=== PATIENT | male | born 1955 | race Caucasian/White ===

== ENCOUNTER 2016-09-07 09:00 | Outpatient (RCR) | payer BC ==
[2016-06-29 09:22] LABS: ADD PATHOLOGY DIFF REVIEW NO
[2016-06-29 09:28] LABS: MEAN CELL VOLUME 67 fl (80.0-100.0); MEAN CORPUSCULAR HGB CONC 32 g/dl (33.0-37.0); PLATELET COUNT 107 K/mm3 (130-400); RED BLOOD COUNT 5.34 M/mm3 (4.20-5.60); REDCELL DISTRIBUTION WIDTH-CV 16.1 % (11.5-14.5); WHITE BLOOD COUNT 3.6 K/mm3 (4.8-10.8)
[2016-06-29 09:33] LABS: HEMOGLOBIN 11.5 g/dl (13.5-18.0); MEAN CORPUSCULAR HEMOGLOBIN 22 pg (27.0-31.0)
[2016-06-29 09:50] LABS: BAND 6 % (0-10); EOSINOPHIL 1 % (0-4); HYPOCHROMIA 1+; MICROCYTOSIS 2+; NEUTROPHILS 52 % (42.0-75.2); PLATELET ESTIMATE DECREASED (NORMAL); TARGET CELLS 1+; TOTAL CELLS COUNTED 100
[2016-06-29 09:54] LABS: HEMATOCRIT 35.9 % (42.0-52.0)
[2016-06-29 10:33] VITALS: BP 133/65; PULSE 58; TEMP 97.8
[2016-08-03 09:25] LABS: ADD PATHOLOGY DIFF REVIEW NO
[2016-08-03 09:37] LABS: MEAN CELL VOLUME 66 fl (80.0-100.0); MEAN CORPUSCULAR HGB CONC 32 g/dl (33.0-37.0); PLATELET COUNT 129 K/mm3 (130-400); RED BLOOD COUNT 5.46 M/mm3 (4.20-5.60); REDCELL DISTRIBUTION WIDTH-CV 16.2 % (11.5-14.5); WHITE BLOOD COUNT 3.9 K/mm3 (4.8-10.8)
[2016-08-03 09:55] LABS: HEMOGLOBIN 11.5 g/dl (13.5-18.0); MEAN CORPUSCULAR HEMOGLOBIN 21 pg (27.0-31.0)
[2016-08-03 10:05] LABS: HEMATOCRIT 35.8 % (42.0-52.0)
[2016-08-03 10:29] VITALS: BP 142/72; PULSE 66; TEMP 98.1
[2016-08-03 10:34] LABS: BAND 2 % (0-10); EOSINOPHIL 2 % (0-4); NEUTROPHILS 44 % (42.0-75.2); PLATELET ESTIMATE DECREASED (NORMAL); TOTAL CELLS COUNTED 100
[2016-09-07 11:28] VITALS: BP 109/87; PULSE 58; TEMP 98.1
== END 2016-09-27 | disposition home or self-care (01) ==
LOC: EUO
PROVIDERS: Internal Medicine
DX: D69.49 Other primary thrombocytopenia (principal)
CPT/HCPCS: J7040

== ENCOUNTER → 2016-09-07 | Outpatient (CLI) | payer BC ==
[~2016-09-07] MED LIST: AMBIEN 5MG TABLE5 MG PO; AMOXICILLIN 8751 TAB PO; CLEOCIN HCL300 MG PO; IBU800 M1 PO; LEVAQUIN 5500 MG/TA1 PO; NORCO 325 MG-51 TAB PO; OMNICEF 300MG300 MG PO; ZOCOR 10MG10 MG PO; ZOCOR 20MG20 MG PO; ZOLOFT 25MG25 MG PO; ZOLOFT 50MG50 MG PO
[2016-09-07 09:39] LABS: HEMATOCRIT 34.1 % (42.0-52.0)
[2016-09-07 09:48] LABS: ADD PATHOLOGY DIFF REVIEW NO
[2016-09-07 09:49] LABS: LACTATE DEHYDROGENASE 431 U/L (313-618)
[2016-09-07 10:00] LABS: MEAN CELL VOLUME 66 fl (80.0-100.0); MEAN CORPUSCULAR HGB CONC 33 g/dl (33.0-37.0); PLATELET COUNT 91 K/mm3 (130-400); RED BLOOD COUNT 5.19 M/mm3 (4.20-5.60); REDCELL DISTRIBUTION WIDTH-CV 16.2 % (11.5-14.5); WHITE BLOOD COUNT 2.8 K/mm3 (4.8-10.8)
[2016-09-07 10:31] LABS: BAND 4 % (0-10); BASOPHIL 2 % (0-2); EOSINOPHIL 4 % (0-4); NEUTROPHILS 46 % (42.0-75.2); TOTAL CELLS COUNTED 100
[2016-09-07 10:32] LABS: MEAN CORPUSCULAR HEMOGLOBIN 21 pg (27.0-31.0)
[2016-09-07 10:34] LABS: HYPOCHROMIA 1+; PLATELET ESTIMATE DECREASED (NORMAL); TEAR DROP CELLS 1+
[2016-09-07 10:49] LABS: TOTAL IRON BINDING CAPACITY 283 ug/dL (261-462)
[2016-09-07 11:15] LABS: FERRITIN 197 ng/mL (18-464)
== END ==
LOC: COL.LAB 09:02
PROVIDERS: Internal Medicine
DX: Z01.89 Encounter for other specified special examinations (principal)

== ENCOUNTER → 2016-10-05 | Outpatient (CLI) | payer BC ==
[2016-10-05 09:48] LABS: ADD PATHOLOGY DIFF REVIEW NO
[2016-10-05 09:53] LABS: MEAN CELL VOLUME 66 fl (80.0-100.0); MEAN CORPUSCULAR HGB CONC 32 g/dl (33.0-37.0); PLATELET COUNT 102 K/mm3 (130-400); RED BLOOD COUNT 5.57 M/mm3 (4.20-5.60); REDCELL DISTRIBUTION WIDTH-CV 17.2 % (11.5-14.5); WHITE BLOOD COUNT 3.9 K/mm3 (4.8-10.8)
[2016-10-05 09:55] LABS: HEMOGLOBIN 11.7 g/dl (13.5-18.0); MEAN CORPUSCULAR HEMOGLOBIN 21 pg (27.0-31.0)
[2016-10-05 10:30] LABS: BAND 4 % (0-10); BASOPHIL 2 % (0-2); EOSINOPHIL 1 % (0-4); HYPOCHROMIA 1+; MICROCYTOSIS 1+; NEUTROPHILS 35 % (42.0-75.2); PLATELET ESTIMATE DECREASED (NORMAL); TOTAL CELLS COUNTED 100
[2016-10-05 10:35] LABS: HEMATOCRIT 36.7 % (42.0-52.0)
== END ==
LOC: COL.LAB 09:06
PROVIDERS: Internal Medicine
DX: Z01.89 Encounter for other specified special examinations (principal)

== ENCOUNTER → 2016-10-26 | Outpatient (CLI) | payer BC ==
[2016-10-26 13:09] LABS: ADD PATHOLOGY DIFF REVIEW NO
[2016-10-26 13:26] LABS: MEAN CELL VOLUME 67 fl (80.0-100.0); MEAN CORPUSCULAR HGB CONC 32 g/dl (33.0-37.0); PLATELET COUNT 102 K/mm3 (130-400); RED BLOOD COUNT 5.43 M/mm3 (4.20-5.60); REDCELL DISTRIBUTION WIDTH-CV 17.5 % (11.5-14.5); WHITE BLOOD COUNT 3.8 K/mm3 (4.8-10.8)
[2016-10-26 13:48] LABS: HEMOGLOBIN 11.5 g/dl (13.5-18.0); MEAN CORPUSCULAR HEMOGLOBIN 21 pg (27.0-31.0)
[2016-10-26 13:49] LABS: HEMATOCRIT 36.2 % (42.0-52.0)
[2016-10-26 13:55] LABS: BAND 5 % (0-10); EOSINOPHIL 1 % (0-4); NEUTROPHILS 52 % (42.0-75.2); TOTAL CELLS COUNTED 100
[2016-10-26 13:56] LABS: ANISOCYTOSIS 1+; MICROCYTOSIS 1+; PLATELET ESTIMATE NORMAL (NORMAL); TARGET CELLS 1+
== END ==
LOC: EUO 09:00
PROVIDERS: Family Medicine
DX: D69.6 Thrombocytopenia, unspecified (principal)

== ENCOUNTER → 2016-11-30 | Outpatient (CLI) | payer BC ==
[2016-11-30 14:34] LABS: ADD PATHOLOGY DIFF REVIEW NO
[2016-11-30 14:54] LABS: MEAN CELL VOLUME 67 fl (80.0-100.0); MEAN CORPUSCULAR HGB CONC 32 g/dl (33.0-37.0); PLATELET COUNT 86 K/mm3 (130-400); RED BLOOD COUNT 5.33 M/mm3 (4.20-5.60); WHITE BLOOD COUNT 3.7 K/mm3 (4.8-10.8)
[2016-11-30 14:57] LABS: HEMOGLOBIN 11.5 g/dl (13.5-18.0); MEAN CORPUSCULAR HEMOGLOBIN 22 pg (27.0-31.0)
[2016-11-30 15:41] LABS: ANISOCYTOSIS 2+; BAND 4 % (0-10); HYPOCHROMIA 2+; MICROCYTOSIS 2+; NEUTROPHILS 54 % (42.0-75.2); TOTAL CELLS COUNTED 100
[2016-11-30 15:42] LABS: OVALOCYTES 1+; PLATELET ESTIMATE DECREASED (NORMAL)
[2016-11-30 17:06] LABS: HEMATOCRIT 35.6 % (42.0-52.0)
== END ==
LOC: EUO 09:00
PROVIDERS: Family Medicine
DX: D69.6 Thrombocytopenia, unspecified (principal)

== ENCOUNTER 2016-12-25 09:06 | Outpatient (CLI) | payer BC ==
[2016-12-25 12:28] VITALS: BP 121/69; PULSE 56; TEMP 97.8
== END 2016-12-25 12:29 ==
LOC: COL.LAB 09:06
DX: Z01.89 Encounter for other specified special examinations (principal)
CPT/HCPCS: J7040

== ENCOUNTER 2016-12-25 10:30 | Outpatient (RCR) | payer BC ==
[2016-10-05 11:15] VITALS: BP 120/76; PULSE 66; TEMP 97.9
[2016-10-26 14:17] VITALS: BP 130/68; PULSE 70; TEMP 98.7
[2016-11-30 15:38] VITALS: BP 128/84; PULSE 60; TEMP 98.4
[~2016-12-25] VITALS: Ht 170.2 cm; Wt 83.0 kg
== END 2017-01-08 | disposition home or self-care (01) ==
LOC: EUO
DX: D69.6 Thrombocytopenia, unspecified (principal)
CPT/HCPCS: J7040

== ENCOUNTER → 2016-12-25 | Outpatient (CLI) | payer BC ==
[2016-12-25 09:46] LABS: ADD PATHOLOGY DIFF REVIEW NO
[2016-12-25 09:57] LABS: MEAN CELL VOLUME 66 fl (80.0-100.0); MEAN CORPUSCULAR HGB CONC 32 g/dl (33.0-37.0); PLATELET COUNT 88 K/mm3 (130-400); RED BLOOD COUNT 5.41 M/mm3 (4.20-5.60); REDCELL DISTRIBUTION WIDTH-CV 17.1 % (11.5-14.5); WHITE BLOOD COUNT 3.2 K/mm3 (4.8-10.8)
[2016-12-25 10:55] LABS: HEMOGLOBIN 11.4 g/dl (13.5-18.0); MEAN CORPUSCULAR HEMOGLOBIN 21 pg (27.0-31.0)
[2016-12-25 10:57] LABS: HEMATOCRIT 35.5 % (42.0-52.0)
[2016-12-25 12:01] LABS: BAND 5 % (0-10); EOSINOPHIL 2 % (0-4); NEUTROPHILS 45 % (42.0-75.2); TOTAL CELLS COUNTED 100
[2016-12-25 12:02] LABS: ANISOCYTOSIS 3+; HYPOCHROMIA 1+; MICROCYTOSIS 1+; PLATELET ESTIMATE DECREASED (NORMAL); TEAR DROP CELLS 1+
== END ==
LOC: COL.LAB 12:26 → EUO 12-28 09:00
PROVIDERS: Family Medicine
DX: D69.6 Thrombocytopenia, unspecified (principal)

== ENCOUNTER 2017-04-18 10:00 | Outpatient (RCR) | payer BC ==
[2017-02-20 09:40] LABS: MEAN CELL VOLUME 65 fl (80.0-100.0); MEAN CORPUSCULAR HGB CONC 32 g/dl (33.0-37.0); PLATELET COUNT 89 K/mm3 (130-400); RED BLOOD COUNT 5.11 M/mm3 (4.20-5.60); WHITE BLOOD COUNT 2.9 K/mm3 (4.8-10.8)
[2017-02-20 09:47] LABS: ADD PATHOLOGY DIFF REVIEW NO; HEMOGLOBIN 10.7 g/dl (13.5-18.0); MEAN CORPUSCULAR HEMOGLOBIN 21 pg (27.0-31.0)
[2017-02-20 10:01] LABS: ADJUSTED CALCIUM 9.1 mg/dL (8.4-10.2); ALBUMIN 4.2 gm/dL (3.5-5.0); BILIRUBIN,TOTAL 2.2 mg/dL (0.0-1.0); CALCIUM 9.3 mg/dL (8.4-10.2); CREATININE, serum 0.65 mg/dL (0.66-1.25); POTASSIUM 3.9 mmol/L (3.4-5.0); TOTAL PROTEIN 6.8 gm/dL (6.4-8.2)
[2017-02-20 10:17] LABS: COLLECTION METHOD CLEAN CATCH
[2017-02-20 10:22] LABS: BAND 3 % (0-10); EOSINOPHIL 2 % (0-4); HYPOCHROMIA 1+; LYMPHOCYTE 49 % (20.0-51.0); NEUTROPHILS 44 % (42.0-75.2); TEAR DROP CELLS 1+; TOTAL CELLS COUNTED 100
[2017-02-20 10:23] LABS: PLATELET ESTIMATE DECREASED (NORMAL)
[2017-02-20 10:35] VITALS: BP 129/70; PULSE 56; TEMP 97.8
[2017-02-20 10:49] LABS: PH 5 (5-8); SQUAMOUS EPITHELIAL None Seen /hpf; URINE APPEARANCE Clear; URINE BACTERIA None Seen /hpf; URINE BILIRUBIN Negative (NEGATIVE); URINE BLOOD Negative (NEGATIVE); URINE COLOR Yellow; URINE GLUCOSE Negative (NEGATIVE); URINE KETONE Negative (NEGATIVE); URINE LEUKOCYTE ESTERASE Negative (NEGATIVE); URINE PROTEIN(semi-quant) Negative (NEGATIVE); URINE RBC 0-2 /hpf; URINE UROBILINOGEN Negative (NEGATIVE); URINE WBC None Seen /hpf
[2017-02-20 12:10] LABS: PSA-TOTAL 0.3 ng/mL (0-4)
[2017-02-20 12:55] LABS: CHOLESTEROL RISK RATIO 2.5
[~2017-04-18] VITALS: Ht 170.2 cm; Wt 82.7 kg
[2017-04-18 09:35] LABS: ADD PATHOLOGY DIFF REVIEW NO
[2017-04-18 09:46] LABS: MEAN CELL VOLUME 67 fl (80.0-100.0); MEAN CORPUSCULAR HGB CONC 32 g/dl (33.0-37.0); PLATELET COUNT 105 K/mm3 (130-400); RED BLOOD COUNT 5.64 M/mm3 (4.20-5.60); WHITE BLOOD COUNT 4.1 K/mm3 (4.8-10.8)
[2017-04-18 09:48] LABS: HEMOGLOBIN 11.9 g/dl (13.5-18.0); MEAN CORPUSCULAR HEMOGLOBIN 21 pg (27.0-31.0)
[2017-04-18 09:50] LABS: HEMATOCRIT 37.5 % (42.0-52.0)
[2017-04-18 10:37] VITALS: BP 127/71; PULSE 58; TEMP 97.8
[2017-04-18 11:19] LABS: ANISOCYTOSIS 2+; BAND 14 % (0-10); HYPOCHROMIA 1+; LYMPHOCYTE 38 % (20.0-51.0); NEUTROPHILS 48 % (42.0-75.2); OVALOCYTES 1+; TOTAL CELLS COUNTED 100
== END 2017-05-21 ==
LOC: EUO
PROVIDERS: Internal Medicine
DX: Z00.00 Encounter for general adult medical examination without abnormal findings (principal); D69.6 Thrombocytopenia, unspecified; E11.9 Type 2 diabetes mellitus without complications; E78.5 Hyperlipidemia, unspecified
CPT/HCPCS: G0103; J7040

== ENCOUNTER 2017-07-25 09:00 | Outpatient (RCR) | payer BC ==
[2017-07-25 09:30] LABS: HEMOGLOBIN 12.2 g/dl (13.5-18.0)
[2017-07-25 09:32] LABS: HEMATOCRIT 37.3 % (42.0-52.0)
[2017-07-25 11:15] VITALS: BP 121/65; PULSE 66; TEMP 98.8
== END 2017-07-25 12:02 | disposition home or self-care (01) ==
LOC: EUO 09:00
PROVIDERS: Internal Medicine
DX: D69.6 Thrombocytopenia, unspecified (principal)
CPT/HCPCS: J7040

== ENCOUNTER 2017-11-14 10:05 | Outpatient (RCR) | payer BC ==
[~2017-11-14] VITALS: Ht 170.2 cm; Wt 86.0 kg
[2017-11-14 10:34] LABS: HEMOGLOBIN 10.8 g/dl (13.5-18.0)
[2017-11-14 11:11] LABS: MEAN CELL VOLUME 66 fl (80.0-100.0); MEAN CORPUSCULAR HEMOGLOBIN 22 pg (27.0-31.0); MEAN CORPUSCULAR HGB CONC 32 g/dl (33.0-37.0); PLATELET COUNT 90 K/mm3 (130-400); RED BLOOD COUNT 5.03 M/mm3 (4.20-5.60); REDCELL DISTRIBUTION WIDTH-CV 16.2 % (11.5-14.5)
[2017-11-14 11:33] LABS: BAND 3 % (0-10); EOSINOPHIL 1 % (0-4); LYMPHOCYTE 38 % (20.0-51.0); NEUTROPHILS 57 % (42.0-75.2)
[2017-11-14 11:35] LABS: POLYCHROMASIA 2+
[2017-11-14 11:36] LABS: ANISOCYTOSIS 1+; TEAR DROP CELLS 1+
[2017-11-14 11:37] LABS: MICROCYTOSIS 1+
[2017-11-14 11:38] LABS: PLATELET ESTIMATE DECREASED (NORMAL)
[2017-11-14 12:00] VITALS: BP 123/62; PULSE 59; TEMP 98
[2017-11-14 13:43] LABS: ALBUMIN 3.9 gm/dL (3.5-5.0); BILIRUBIN,TOTAL 1.3 mg/dL (0.0-1.0); CALCIUM 8.7 mg/dL (8.4-10.2); CREATININE, serum 0.59 mg/dL (0.66-1.25); POTASSIUM 3.8 mmol/L (3.4-5.0); TOTAL PROTEIN 7.2 gm/dL (6.4-8.2)
== END 2017-11-14 14:03 | disposition home or self-care (01) ==
LOC: EUO 10:05
PROVIDERS: Internal Medicine
DX: D69.6 Thrombocytopenia, unspecified (principal)
CPT/HCPCS: J7040

== ENCOUNTER 2018-07-05 14:33 | Emergency (ER) | payer BC, MEDICARE ==
[~2018-07-05] VITALS: Ht 167.6 cm; Wt 86.4 kg
[2018-07-05 14:37] VITALS: TEMP 98.6
[2018-07-05 15:39] LABS: EOS # 0.1 (0.0-0.7); EOS % 1.4 % (0-4.0); GRAN # 2.4 (1.4-6.5); GRAN % 56.2 % (42.2-75.2); LYMPH # 1.4 (1.2-3.4); LYMPH % 33.7 % (20.0-51.0); MEAN CELL VOLUME 69 fl (80.0-100.0); MEAN CORPUSCULAR HEMOGLOBIN 22 pg (27.0-31.0); MEAN CORPUSCULAR HGB CONC 32 g/dl (33.0-37.0); MEAN PLATELET VOLUME 10.5 fl (7.4-10.4); MONO # 0.3 (0.1-0.6); MONO % 6.7 % (1.7-9.3); PLATELET COUNT 133 K/mm3 (130-400); RED BLOOD COUNT 4.97 M/mm3 (4.20-5.60); REDCELL DISTRIBUTION WIDTH-CV 16.4 % (11.5-14.5)
[2018-07-05 15:45] LABS: HEMATOCRIT 34.1 % (42.0-52.0)
[2018-07-05 15:46] LABS: INR 1.1 (0.8-3.0)
[2018-07-05 15:48] LABS: ALANINE AMINOTRANSFERASE 52 U/L (21-72); ALBUMIN 4.3 gm/dL (3.5-5.0); ALKALINE PHOSPHATASE 71 U/L (50-136); ANION GAP 7 mmol/L (7-16); AST,SGOT 43 U/L (15-37); BILIRUBIN,TOTAL 2.2 mg/dL (0.0-1.0); BLOOD UREA NITROGEN 21 mg/dL (9-20); CALCIUM 9.2 mg/dL (8.4-10.2); CARBON DIOXIDE 28 mmol/L (22-30); CHLORIDE 109 mmol/L (98-107); CREATININE, serum 0.71 mg/dL (0.66-1.25); GLUCOSE 105 mg/dL (74-106); POTASSIUM 3.8 mmol/L (3.4-5.0); SODIUM 143 mmol/L (137-145); TOTAL PROTEIN 7.1 gm/dL (6.4-8.2)
[2018-07-05 16:05] LABS: ARTERIAL BLD GAS O2 SATURATION 95.7 % (92-100); ARTERIAL BLOOD GAS BASE EXCESS -3.3 (-2-2); ARTERIAL BLOOD GAS HCO3 19.2 meq/L (22-26); ARTERIAL BLOOD GAS PCO2 26.9 mmHg (35-45); ARTERIAL BLOOD GAS PO2 84.4 mmHg (80-100); ARTERIAL BLOOD GAS pH 7.47 (7.35-7.45)
[2018-07-05 16:08] LABS: TROPONIN-I < 0.012 ng/mL (0.000-0.034)
[2018-07-05] MEDS ORDERED: ATIVAN 1MG T1 MG/TAB PO (17:56)
[2018-07-05 18:10] VITALS: BP 141/82; PULSE 55
== END 2018-07-05 18:10 | disposition home or self-care (01) ==
LOC: COL.ER 14:33
PROVIDERS: Emergency Medicine
DX: R06.00 Dyspnea, unspecified (principal); E78.5 Hyperlipidemia, unspecified
CPT/HCPCS: Q9967

== ENCOUNTER → 2019-11-12 | Outpatient (CLI) | payer BC, MEDICARE ==
[~2019-11-12] MED LIST changes: +ATIVAN 1MG T1 MG/TAB PO
== END ==
LOC: COL.RAD 08:10
DX: E83.111 Hemochromatosis due to repeated red blood cell transfusions (principal); R16.1 Splenomegaly, not elsewhere classified; R74.8 Abnormal levels of other serum enzymes

== ENCOUNTER → 2020-04-24 | Outpatient (CLI) | payer BC, MEDICARE | LOC: ZCOL.LAB 15:45 | DX: B34.9 Viral infection, unspecified (principal); Z20.828 Contact with and (suspected) exposure to other viral communicable diseases ==

== ENCOUNTER 2020-11-06 21:54 | Emergency (ER) | payer BC, MEDICARE ==
[~2020-11-06] VITALS: Ht 167.6 cm; Wt 86.4 kg
[2020-11-06 22:07] VITALS: TEMP 98.7
[2020-11-06 22:45] LABS: BASO % 0.4 % (0.0-2.0); EOS % 0.2 % (0-4.0); GRAN # 2.8 (1.4-6.5); GRAN % 55.6 % (42.2-75.2); HEMOGLOBIN 11.2 g/dl (13.5-18.0); LYMPH # 1.7 (1.2-3.4); LYMPH % 34.5 % (20.0-51.0); MEAN CELL VOLUME 69 fl (80.0-100.0); MEAN CORPUSCULAR HEMOGLOBIN 22 pg (27.0-31.0); MEAN CORPUSCULAR HGB CONC 31 g/dl (33.0-37.0); MEAN PLATELET VOLUME 9.5 fl (7.4-10.4); MONO # 0.4 (0.1-0.6); MONO % 7.3 % (1.7-9.3); PLATELET COUNT 118 K/mm3 (130-400); RED BLOOD COUNT 5.21 M/mm3 (4.20-5.60); REDCELL DISTRIBUTION WIDTH-CV 17.7 % (11.5-14.5)
[2020-11-06 22:54] LABS: ALBUMIN 4.3 gm/dL (3.5-5.0); BILIRUBIN,TOTAL 1.6 mg/dL (0.0-1.0); CALCIUM 9.2 mg/dL (8.4-10.2); CREATININE, serum 0.73 (0.66-1.25); POTASSIUM 4.1 mmol/L (3.4-5.0); TOTAL PROTEIN 7.4 gm/dL (6.4-8.2)
[2020-11-06 23:36] VITALS: BP 126/70; PULSE 78
== END 2020-11-06 23:36 | disposition home or self-care (01) ==
LOC: COL.ER 21:54
PROVIDERS: Emergency Medicine
DX: H53.9 Unspecified visual disturbance (principal); I10 Essential (primary) hypertension; Z86.69 Personal history of other diseases of the nervous system and sense organs

== ENCOUNTER → 2021-08-19 | Outpatient (CLI) | payer BC, MEDICARE | LOC: COL.RAD 07:46 | DX: D69.6 Thrombocytopenia, unspecified (principal); R16.1 Splenomegaly, not elsewhere classified ==

== ENCOUNTER → 2021-09-26 | Outpatient (CLI) | payer BC, MEDICARE | LOC: COL.RAD 07:02 | DX: J32.2 Chronic ethmoidal sinusitis (principal); J32.0 Chronic maxillary sinusitis; G31.9 Degenerative disease of nervous system, unspecified | CPT/HCPCS: A9575 ==

== ENCOUNTER 2022-01-17 09:15 | Outpatient (RCR) | payer BC, MEDICARE | END 2022-01-19 | disposition still patient (30) | LOC: WSPT | DX: M17.12 Unilateral primary osteoarthritis, left knee (principal); Z96.652 Presence of left artificial knee joint ==

== ENCOUNTER 2022-02-17 10:30 | Outpatient (RCR) | payer BC, MEDICARE | END 2022-02-19 | disposition home or self-care (01) | LOC: WSPT | DX: M17.12 Unilateral primary osteoarthritis, left knee (principal); Z96.652 Presence of left artificial knee joint | CPT/HCPCS: G0283-GP ==

== ENCOUNTER 2022-02-24 20:07 | Emergency (ER) | payer MEDICARE, OTHER ==
[~2022-02-24] VITALS: Ht 167.6 cm; Wt 81.8 kg
[2022-02-24] MEDS ORDERED: NORCO 325 MG-51 TAB PO (22:20)
[2022-02-24 22:42] VITALS: BP 139/47; PULSE 59; TEMP 97.9
== END 2022-02-24 22:42 | disposition home or self-care (01) ==
LOC: COL.ER 20:07
DX: G89.18 Other acute postprocedural pain (principal); M25.561 Pain in right knee
CPT/HCPCS: J2270; J2405

== ENCOUNTER → 2022-03-22 | Outpatient (RCR) | payer BC, MEDICARE | END | disposition home or self-care (01) | LOC: WSPT | DX: M25.561 Pain in right knee (principal); Z96.651 Presence of right artificial knee joint ==

== ENCOUNTER → 2022-11-09 | Outpatient (CLI) | payer MEDICARE, OTHER ==
[~2022-11-09] MED LIST changes: +GLUCOPHAGE1000 MG PO; +GLUCOPHAGE500 MG/TAB PO; +HYGROTON 2525 MG/TAB PO
== END ==
LOC: MC.RAD 13:00
DX: N63.21 Unspecified lump in the left breast, upper outer quadrant (principal)